=== PATIENT | male | born 1990 | race Hispanic/Latino ===

== ENCOUNTER 2020-12-10 13:34 | Emergency (ER) | payer SELFPAY ==
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
[2020-12-10] MEDS ORDERED: IBUPROFEN 800 MG TAB PO ONE (16:02)
[2020-12-10 16:40] VITALS: BP 134/71
== END 2020-12-10 16:40 | disposition home or self-care (01) ==
LOC: ED 13:34
DX: S60.221A Contusion of right hand, initial encounter (principal); Z72.89 Other problems related to lifestyle; Z98.890 Other specified postprocedural states; Z79.899 Other long term (current) drug therapy; X58.XXXA Exposure to other specified factors, initial encounter; Y93.89 Activity, other specified; Y92.89 Other specified places as the place of occurrence of the external cause; Y99.8 Other external cause status
CPT/HCPCS: 99283